=== PATIENT | male | born 1970 | race Caucasian/White ===

== ENCOUNTER 2018-05-29 09:23 | Emergency (ER) | payer OTHER ==
[2018-05-29 11:43] VITALS: BP 120/92
--- NOTE | 2018-05-29 12:33 | UC ---
Abdominal Pain Male HPI - HPI Summary HPI Summary: PT REPORTS ABOUT A WEEK OF LOWER ABDOMINAL PAIN. NO NAUSEA. NO URINARY SX. NO FEVER. HAS BEEN FEELING CONSTIPATED. HAD A LOOSE STOOL TODAY AND 2 DAYS AGO. NORMALLY GOES TWICE DAILY. IS PASSING GAS. STATES SX ARE ALREADY IMPROVING AND HE HAS A PCP APPT TOMORROW BUT WAS PASSING BY SO DECIDED TO COME IN FOR EVAL. ADMITS TO NOT EATING WELL RECENTLY DUE TO THE HOLIDAYS. - History of Current Complaint Chief Complaint: UCAbdominalPain Stated Complaint: ABD PAIN Time Seen by Provider: 05/29/18 11:10 Hx Obtained From: Patient Onset/Duration: Gradual Onset, Lasting Days, Still Present Timing: Intermittent Episodes Lasting: Severity Initially: Moderate Severity Currently: Moderate Pain Intensity: 2 Pain Scale Used: 0-10 Numeric Location: Diffuse Radiates: No Character: Aching, Sharp Aggravating Factor(s): Nothing Alleviating Factor(s): Spontaneous Resolution Associated Signs And Symptoms: Positive: Constipation, Decreased Appetite. Negative: Diaphoresis, Fever, Back Pain, Blood in Stool, Urinary Symptoms, Nausea - Allergies/Home Medications Allergies/Adverse Reactions: Allergies Allergy/AdvReac Type Severity Reaction Status Date / Time No Known Allergies Allergy Verified 05/29/18 09:36 Home Medications: Home Medications Ibuprofen 400 mg PO 05/29/18 [History] PMH/Surg Hx/FS Hx/Imm Hx Previously Healthy: Yes - Surgical History Surgical History: None - Family History Family History: COLON CANCER - Social History Alcohol Use: Daily Substance Use Type: None Smoking Status (MU): Never Smoked Tobacco Review of Systems All Other Systems Reviewed And Are Negative: Yes Constitutional: Positive: Negative Skin: Positive: Negative Respiratory: Positive: Negative Cardiovascular: Positive: Negative Gastrointestinal: Positive: Abdominal Pain, Diarrhea Genitourinary: Positive: Negative Physical Exam Triage Information Reviewed: Yes Appearance: Well-Appearing, No Pain Distress, Well-Nourished Vital Signs: Initial Vital Signs Temp 97.9 F 05/29/18 09:31 Pulse 106 05/29/18 09:31 Resp 18 05/29/18 09:31 BP 134/94 05/29/18 09:31 Pulse Ox 95 05/29/18 09:31 Vital Signs Reviewed: Yes Eyes: Positive: Conjunctiva Clear ENT: Positive: Hearing grossly normal Neck: Positive: Supple, Nontender, No Lymphadenopathy Respiratory Exam: Normal Cardiovascular Exam: Normal Abdomen Description: Positive: Soft, Other: - MILDLY TENDER DIFFUSELY BUT WORSE MID LINE LOWER ABDOMEN. NO REBOUND OR RIGIDITY. NEG OBTURATOR.. Negative : CVA Tenderness (R), CVA Tenderness (L), Distended, Guarding Bowel Sounds: Positive: Present Musculoskeletal: Positive: No Edema Neurological: Positive: Alert Psychological: Positive: Age Appropriate Behavior Skin: Negative: Rashes Abd Pain Male Course/Dx - Course Course Of Treatment: DISCUSSED ED EVALUATION TODAY. PT DECLINES WHICH IS REASONABLE. SX ARE FEELING BETTER ALREADY AND PT HAS PCP APPT TOMORROW. WILL GO TO ED IF SX WORSEN OVERNIGHT. - Differential Dx/Clinical Impression Provider Diagnosis: Lower abdominal pain, unspecified Discharge - Sign-Out/Discharge Documenting (check all that apply): Patient Departure All imaging exams completed and their final reports reviewed: No Studies - Discharge Plan Condition: Stable Disposition: HOME Patient Education Materials: Abdominal Pain (ED) Referrals: Timothy Kaporo, TRANSITIONAL NURSE [Primary Care Provider] - (KEEP YOUR APPT TOMORROW) Additional Instructions: YOUR SYMPTOMS ARE ALREADY IMPROVING. BE SURE TO STAY WELL-HYDRATED. KEEP YOUR FOLLOW-UP APPOINTMENT WITH YOUR PCP TOMORROW. YOU MAY BENEFIT FROM LABS AND POSSIBLY SOME IMAGING. GO TO THE ED WITHOUT FAIL IF YOU DEVELOP WORSENING PAIN , FEVER, NAUSEA/VOMITING, BLOOD PER RECTUM OR ANY OTHER CONCERNING SYMPTOMS. ALSO CONSIDER GI FOLLOW-UP. [facility] Address: [address] [place] [id number] ABDOMINAL PAIN: There are many causes of abdominal pain. Pain can mean a serious problem requiring surgery (such as appendicitis), or an innocent problem which goes away on its own (such as a viral infection). Often, time must pass to determine the cause of pain. The physician does not feel that hospitalization is necessary, at present. Conditions may change, however, within the next 24 hours. GO TO THE ER WITHOUT FAIL IF ANY OF THE FOLLOWING OCCUR: 1) Pain which becomes more severe, steady, or becomes concentrated in one specific area. Also, pain which is more severe with movement or coughing. 2) Vomiting which persists or becomes more frequent. 3) Blood in the vomitus, urine, or bowel movements. Blood in the stool may have a tarry or black appearance. 4) Shaking chills or fever greater than 100 degrees F. 5) The abdomen becomes more distended or swollen. 6) Bowel movements cease. 7) Failure to improve as expected. OBSERVATION FOR APPENDICITIS: At this time, the abdominal pain does not seem to be appendicitis. Our next "test" will be passage of time. If you have early appendicitis, signs will appear to help us make the diagnosis. Most of the time, the pain goes away. In these cases, the pain is usually due to a virus in the lymph glands near the appendix, or due to an ovarian cyst or ovulation. Unless the pain is gone, you should come back for a recheck. This is usually done in 8 to 12 hours. Be sure you understand your follow-up instructions. GO TO THE ER IMMEDIATELY IF: (1) the pain becomes much more severe and sharply increases with movement or coughing, (2) vomiting becomes frequent, (3) there is blood in the vomit, urine, or bowel movements, (4) there are shaking chills or fever, or (5) the abdomen becomes more distended or swollen. - Billing Disposition and Condition Condition: STABLE Disposition: Home
== END 2018-05-29 11:38 | disposition home or self-care (01) ==
LOC: UCEAST 09:23
DX: R10.30 Lower abdominal pain, unspecified (principal)
CPT/HCPCS: 99211; G0463